=== PATIENT | male | born 1995 | race Hispanic/Latino ===

== ENCOUNTER 2020-10-28 08:03 | Day surgery (SDC) | payer BC ==
--- NOTE | 2020-10-28 10:12 | RAD REPORT ---
EXAM DESCRIPTION: CTAbdomen Pelvis W Contrast - 10/28/2020 10:00 am CLINICAL HISTORY: Abdominal pain. LUNA RECTAL ABSCESS;Abd pain COMPARISON: CT ABD PELVIS W CONTRAST dated 03/15/2015; CT ABD PELVIS W CONTRAST dated 10/06/2014 TECHNIQUE: Biphasic CT imaging of the abdomen and pelvis was performed with 100 ml non-ionic IV cont rast. All CT scans are performed using dose optimization technique as appropriate and may include automated exposure control or mA/KV adjustment according to patient size. FINDINGS: Tiny left lower lobe nodule which is likely benign. The liver, spleen, pancreas, adrenal glands and kidneys are within normal limits. No bowel obstruction, free air, free fluid or abscess. The appendix is normal. No evidence of signi ficant lymphadenopathy. There is a 3.6 by 2.4 centimeter left-sided perianal fluid collection. This i s at approximately the 4 o'clock position. Reactive inguinal lymph nodes. No suspicious bony findings. IMPRESSION: Findings concerning for a perianal abscess.
--- NOTE | 2020-10-28 10:15 | EDPHYS ---
Physician Documentation [facility] Name: Moise Gamble Age: 25 yrs Sex: Male : 1995 Arrival Date: 10/28/2020 Time: 08:06 Bed External Waiting Private MD: None, None ED Physician Naveed Dean HPI: 10/28 09:26 This 25 yrs old Male presents to ER via Ambulatory with complaints of Rectal hortencia Pain. 09:26 The patient presents to the emergency department with an abscess of the gluteal cleft. hortencia Onset: The symptoms/episode began/occurred 3 day(s) ago. Context: the patient has no known special context relating to the rectal area complaint(s). Modifying factors: The symptoms are alleviated by remaining still, sitz baths, The symptoms are aggravated by bowel movement, movement. Associate signs and symptoms: The patient has no apparent associated signs or symptoms. The patient has not experienced similar symptoms in the past. Historical: - Allergies: 08:24 No Known Allergies; iw - Home Meds: 08:24 None [Active]; iw - PMHx: 08:24 None; iw - PSHx: 08:24 None; iw - Immunization history:: Client reports having NOT received the Covid vaccine. - Social history:: Smoking status: Patient denies any tobacco usage or history of. ROS: 09:28 Constitutional: Negative for fever, chills, and weight loss, Eyes: Negative for injury, hortencia pain, redness, and discharge, ENT: Negative for injury, pain, and discharge, Neck: Negative for injury, pain, and swelling, Cardiovascular: Negative for chest pain, palpitations, and edema, Respiratory: Negative for shortness of breath, cough, wheezing, and pleuritic chest pain, Back: Negative for injury and pain, : Negative for injury, bleeding, discharge, and swelling, MS/Extremity: Negative for injury and deformity, Skin: Negative for injury, rash, and discoloration, Neuro: Negative for headache, weakness, numbness, tingling, and seizure, Psych: Negative for depression, anxiety, suicide ideation, homicidal ideation, and hallucinations, Allergy/Immunology: Negative for hives, rash, and allergies, Endocrine: Negative for neck swelling, polydipsia, polyuria, polyphagia, and marked weight changes, Hematologic/Lymphatic: Negative for swollen nodes, abnormal bleeding, and unusual bruising. 09:28 Abdomen/GI: Positive for rectal pain, of the . Exam: 09:28 Constitutional: This is a well developed, well nourished patient who is awake, alert, hortencia and in no acute distress. Head/Face: Normocephalic, atraumatic. Eyes: Pupils equal round and reactive to light, extra-ocular motions intact. Lids and lashes normal. Conjunctiva and sclera are non-icteric and not injected. Cornea within normal limits. Periorbital areas with no swelling, redness, or edema. ENT: Nares patent. No nasal discharge, no septal abnormalities noted. Tympanic membranes are normal and external auditory canals are clear. Oropharynx with no redness, swelling, or masses, exudates, or evidence of obstruction, uvula midline. Mucous membranes moist. Neck: Trachea midline, no thyromegaly or masses palpated, and no cervical lymphadenopathy. Supple, full range of motion without nuchal rigidity, or vertebral point tenderness. No Meningismus. Chest/axilla: Normal chest wall appearance and motion. Nontender with no deformity. No lesions are appreciated. Cardiovascular: Regular rate and rhythm with a normal S1 and S2. No gallops, murmurs, or rubs. Normal PMI, no JVD. No pulse deficits. Respiratory: Lungs have equal breath sounds bilaterally, clear to auscultation and percussion. No rales, rhonchi or wheezes noted. No increased work of breathing, no retractions or nasal flaring. Back: No spinal tenderness. No costovertebral tenderness. Full range of motion. Male : Normal genitalia with no discharge or lesions. Skin: Warm, dry with normal turgor. Normal color with no rashes, no lesions, and no evidence of cellulitis. MS/ Extremity: Pulses equal, no cyanosis. Neurovascular intact. Full, normal range of motion. Neuro: Awake and alert, GCS 15, oriented to person, place, time, and situation. Cranial nerves II-XII grossly intact. Motor strength 5/5 in all extremities. Sensory grossly intact. Cerebellar exam normal. Normal gait. Psych: Awake, alert, with orientation to person, place and time. Behavior, mood, and affect are within normal limits. 09:28 Abdomen/GI: Inspection: abdomen appears normal, Bowel sounds: normal, Palpation: abdomen is soft and non-tender, Rectal exam: swelling, that is moderate, tenderness, that is moderate, Liver: no appreciated palpable abnormalities, Hernia: not appreciated. Vital Signs: 08:22 BP 120 / 66; Pulse 126; Resp 18 S; Temp 97.0; Pulse Ox 100% on R/A; Pain 6/10; iw 10:00 BP 126 / 73; Pulse 70; Resp 16; Pulse Ox 100% ; bp 11:00 BP 121 / 74; Pulse 75; Resp 16; Pulse Ox 100% ; bp MDM: 08:39 Patient medically screened. [facility] 09:29 Differential diagnosis: hemorrhoids, fissure, abscess. Data reviewed: vital signs, [facility] nurses notes, lab test result(s), radiologic studies, CT scan. Data interpreted: Pulse oximetry: on room air is 100 %. Test interpretation: by ED physician or midlevel provider: plain radiologic studies. Counseling: I had a detailed discussion with the patient and/or guardian regarding: the historical points, exam findings, and any diagnostic results supporting the discharge/admit diagnosis, lab results, radiology results. 10/28 09:21 Order name: Basic Metabolic Panel [facility] 10/28 09:21 Order name: CBC with Diff [facility] 10/28 09:21 Order name: Hepatic Function; Complete Time: 10:44 [facility] 10/28 09:21 Order name: Lipase; Complete Time: 10:44 [facility] 10/28 09:21 Order name: Basic Metabolic Panel; Complete Time: 10:44 [facility] 10/28 09:21 Order name: CBC with Automated Diff; Complete Time: 11:07 [facility] 10/28 09:21 Order name: CT Abd/Pelvis - IV Contrast Only; Complete Time: 10:44 [facility] 10/28 12:33 Order name: COVID-19 : Document "Date of Symptom Onset" if Symptomatic. [facility] 10/28 12:53 Order name: CORONAVIRUS [facility] 10/28 14:19 Order name: SARS-COV-2 RT PCR [facility] 10/28 09:21 Order name: IV Saline Lock; Complete Time: 09:48 [facility] 10/28 09:21 Order name: Labs collected and sent; Complete Time: 09:49 [facility] Administered Medications: 09:45 Drug: NS 0.9% 1000 ml Route: IV; Rate: 1 bolus; Site: right antecubital; bp 11:30 Follow up: IV Status: Completed infusion; IV Intake: 1000ml bp 09:45 Drug: Flagyl (metroNIDAZOLE) 500 mg Volume: 100 ml; Route: IVPB; Rate: 200 ml/hr; bp Infused Over: 30 mins; Site: right antecubital; 11:30 Follow up: IV Status: Completed infusion; IV Intake: 100ml bp 09:45 Drug: morphine 4 mg Route: IVP; Site: right antecubital; bp 11:30 Follow up: Response: No adverse reaction bp 09:45 Drug: Zofran (Ondansetron) 4 mg Route: IVP; Site: right antecubital; bp 11:30 Follow up: Response: No adverse reaction bp 10:45 Drug: levofloxacin 750 mg Volume: 150 ml; Route: IVPB; Infused Over: 90 mins; Site: bp right antecubital; Disposition Summary: 10/28/20 10:15 Hospitalization Ordered Hospitalization Status: Observation hortencia Provider: Dick Cain cha Location: Telemetry/MedSurg (observation) hortencia Condition: Stable hortencia Problem: new hortencia Symptoms: have improved hortencia Bed/Room Type: Standard hortencia Room Assignment: hortencia Diagnosis - Anorectal abscess - 3.5X2.4 CM LEFT PERIRECTAL ABSCESS hortencia - Nausea hortencia - Elevated white blood cell count hortencia Forms: - Medication Reconciliation Form hortencia - SBAR form hortencia Signatures: Dispatcher [employer] Naveed Haile MD MD cha Williams, Irene, NICOLASA RN Perry Harris RN RN bp
--- NOTE | 2020-10-28 10:15 | ER ---
Nurse's Notes [facility] Name: Moise Gamble Age: 25 yrs Sex: Male : 1995 Arrival Date: 10/28/2020 Time: 08:06 Bed External Waiting Private MD: None, None Diagnosis: Anorectal abscess-3.5X2.4 CM LEFT PERIRECTAL ABSCESS;Nausea;Elevated white blood cell count Presentation: 10/28 08:22 Chief complaint: Patient states: is having pain and burning in rectal area , thinks he iw has hemorrhoids, feels a bump, had a rash but it has gotten better , noticed it two days ago. Coronavirus screen: At this time, the client does not indicate any symptoms associated with coronavirus-19. Ebola Screen: Patient negative for fever greater than or equal to 101.5 degrees Fahrenheit, and additional compatible Ebola Virus Disease symptoms Patient denies exposure to infectious person. Patient denies travel to an Ebola-affected area in the 21 days before illness onset. No symptoms or risks identified at this time. Initial Sepsis Screen: Does the patient meet any 2 criteria? No. Patient's initial sepsis screen is negative. Does the patient have a suspected source of infection? No. Patient's initial sepsis screen is negative. Risk Assessment: Do you want to hurt yourself or someone else? Patient reports no desire to harm self or others. Onset of symptoms was October 26, 2020. 08:22 Method Of Arrival: Ambulatory iw 08:22 Acuity: IGNACIO 4 iw 09:39 Acuity: IGNACIO 3 iw Triage Assessment: 08:40 General: Appears in no apparent distress. uncomfortable, Behavior is cooperative, bp appropriate for age, anxious. Pain: Complains of pain in buttocks. EENT: No deficits noted. Neuro: No deficits noted. Cardiovascular: No deficits noted. Respiratory: No deficits noted. GI: Reports rectal bleeding. : No signs and/or symptoms were reported regarding the genitourinary system. Derm: No deficits noted. Musculoskeletal: No deficits noted. Historical: - Allergies: 08:24 No Known Allergies; iw - Home Meds: 08:24 None [Active]; iw - PMHx: 08:24 None; iw - PSHx: 08:24 None; iw - Immunization history:: Client reports having NOT received the Covid vaccine. - Social history:: Smoking status: Patient denies any tobacco usage or history of. Screenin:40 Abuse screen: Denies threats or abuse. Denies injuries from another. Nutritional bp screening: No deficits noted. Tuberculosis screening: No symptoms or risk factors identified. Fall Risk None identified. Assessment: 08:40 General: SEE TRIAGE NOTE. bp 10:00 Reassessment: No changes from previously documented assessment. Patient and/or family bp updated on plan of care and expected duration. Pain level reassessed. Patient is alert, oriented x 3, equal unlabored respirations, skin warm/dry/pink. 11:00 Reassessment: No changes from previously documented assessment. Patient and/or family bp updated on plan of care and expected duration. Pain level reassessed. ADMIT FOR SURGICAL I\T\D INITIATED. Vital Signs: 08:22 BP 120 / 66; Pulse 126; Resp 18 S; Temp 97.0; Pulse Ox 100% on R/A; Pain 6/10; iw 10:00 BP 126 / 73; Pulse 70; Resp 16; Pulse Ox 100% ; bp 11:00 BP 121 / 74; Pulse 75; Resp 16; Pulse Ox 100% ; bp ED Course: 08:06 Patient arrived in ED. as 08:06 None, None is Private Physician. as 08:24 Triage completed. iw 08:24 Arm band placed on. iw 08:39 Naveed Dean MD is Attending Physician. hortencia 08:40 Patient has correct armband on for positive identification. Bed in low position. Call bp light in reach. Side rails up X2. 08:43 Perry Roman, NICOLASA is Primary Nurse. bp 09:40 Inserted saline lock: 20 gauge in right antecubital area, using aseptic technique. bp Blood collected. 09:49 CT Abd/Pelvis - IV Contrast Only Sent. bp 09:59 CT Abd/Pelvis - IV Contrast Only In Process Unspecified. EDMS 10:12 Dick Cain MD is Hospitalizing Provider. hortencia Administered Medications: 09:45 Drug: NS 0.9% 1000 ml Route: IV; Rate: 1 bolus; Site: right antecubital; bp 11:30 Follow up: IV Status: Completed infusion; IV Intake: 1000ml bp 09:45 Drug: Flagyl (metroNIDAZOLE) 500 mg Volume: 100 ml; Route: IVPB; Rate: 200 ml/hr; bp Infused Over: 30 mins; Site: right antecubital; 11:30 Follow up: IV Status: Completed infusion; IV Intake: 100ml bp 09:45 Drug: morphine 4 mg Route: IVP; Site: right antecubital; bp 11:30 Follow up: Response: No adverse reaction bp 09:45 Drug: Zofran (Ondansetron) 4 mg Route: IVP; Site: right antecubital; bp 11:30 Follow up: Response: No adverse reaction bp 10:45 Drug: levofloxacin 750 mg Volume: 150 ml; Route: IVPB; Infused Over: 90 mins; Site: bp right antecubital; Intake: 11:30 IV: 1000ml; Total: 1000ml. bp 11:30 IV: 100ml; Total: 1100ml. bp Outcome: 10:15 Decision to Hospitalize by Provider. hortencia 16:57 Patient left the ED. iw Signatures: Dispatcher [employer] EDDE Naveed Dean MD MD cha Martinez, Amelia as Williams, Irene, RN RN Perry Roman RN RN bp
[2020-10-28 10:32] LABS: ALT/SGPT 40 U/L (12-78); AST/SGOT 7 U/L (15-37); Absolute Lymphocytes (CBC) 1.9 K/uL (0.7-4.9); Albumin 3.3 g/dL (3.4-5.0); Alkaline Phosphatase 58 U/L (45-117); BUN Blood Urea Nitrogen 8 mg/dL (7-18); Basophils % 0.4 % (0-1.3); Bicarbonate 29 mmol/L (21-32); Bilirubin Direct 0.3 mg/dL (0-0.2); Glucose Level 94 mg/dL (74-106); Hematocrit 45.5 % (39.6-49.0); Lipase 49 U/L (73-393); MPV 10.5 fL (7.6-11.3); Potassium 3.8 mmol/L (3.5-5.1); Protein, Total 8.1 g/dL (6.4-8.2); RBC Red Blood Cell Count 5.42 M/uL (4.33-5.43); Sodium Level 139 mmol/L (136-145)
[2020-10-28] MEDS ORDERED: MORPHINE 4 MG/ML SYR ONE (10:39)
[2020-10-28] MEDS ORDERED: METRONIDAZOLE 500mg IVPB 500 MG/100 ML BAG IV ONE (10:39)
[2020-10-28] MEDS ORDERED: ONDANSETRON 4 MG/2 ML VIAL ONE (10:39)
[2020-10-28] MEDS ORDERED: NA CHLORIDE 0.9% 1,000 ML ONE (10:39)
[2020-10-28] MEDS ORDERED: Levofloxacin 750mg IV 750 MG/150 ML BAG IV ONE (10:39)
[2020-10-28] MEDS ORDERED: Ringers Lactate 1,000 ML IV ONE (14:48)
[2020-10-28] MEDS ORDERED: propofoL 200 MG/20 ML VIAL IV ONE (15:08)
[2020-10-28] MEDS ORDERED: FENTANYL CITR 100 MCG/2 ML ONE ×2 (15:08→17:00)
[2020-10-28] MEDS ORDERED: MIDAZOLAM HCL 2 MG/2 ML INJ ONE (15:08)
--- NOTE | 2020-10-28 15:11 | P.BOP ---
Preoperative diagnosis: perianal/perirectal abscess, left buttock cellulitis Postoperative diagnosis: same Primary procedure: EUA, anoscopy, Rigid proctoscopy, Incision and drainage perirectal abscess Estimated blood loss: <10cc Specimen: pus Findings: perianal/perirectal abscess Anesthesia: General Complications: None Drain(s): Other Transferred to: Recovery Room Condition: Good
[2020-10-28] MEDS ORDERED: BUPIVACAINE 0.5% PF 10 ML VIAL ONE (15:20)
[2020-10-28] MEDS ORDERED: dexAMETHasone 10 MG/ML VIAL ONE (15:47)
[2020-10-28] MEDS ORDERED: METRONIDAZOLE 500mg IVPB 500 MG/100 ML BAG IV SCH (16:00)
[2020-10-28] MEDS ORDERED: ONDANSETRON 4 MG/2 ML VIAL IV PRN (16:01)
[2020-10-28] MEDS ORDERED: NA CHLORIDE 0.9% 1,000 ML IV SCH (16:01)
[2020-10-28] MEDS ORDERED: MORPHINE 4 MG/ML SYR IV PRN (16:01)
[2020-10-28] MEDS ORDERED: ACETAMINOPHEN 500 MG TAB PO PRN (16:01)
[2020-10-28] MEDS ORDERED: CODEINE 30MG/APAP 300MG TAB ONE (16:45)
[2020-10-28] MEDS ORDERED: Levofloxacin 750mg IV 750 MG/150 ML BAG IV SCH (17:00)
[2020-10-28 17:08] VITALS: BP 116/75; TEMP 97.4; O2SAT 98
--- NOTE | 2020-10-28 20:02 | HP ---
Date of Admission: 10/28/2020 History Of Present Illness: This is the case of a 25-year-old patient, who comes to us with 3 days h istory of perianal and buttock tenderness to the point that today he could not take it anymore, so he decided to come to the ER, found out to have a perianal abscess/perirectal abscess and a surgical co nsult was obtained for a surgical intervention. He denied any dysuria, hematuria, hematochezia, or m hilda. Denies any recent travelling out of the country. Denies any family member sick at home. Den ies any fever. Denies any shortness of breath. Denies any chest pain. Past Medical History: None. Allergies: NONE. Past Surgical History: None. Social History: He does not smoke. He does not drink alcohol. Family History: Noncontributory. Review of Systems: See H and P. Ten points otherwise unremarkable. Physical Examination: General: The patient is awake, alert, no distress. HEENT: Pupils are equal and reactive, anicteric. Neck: Supple. Chest: Clear. Abdomen: Soft and depressible. No guarding or rebound. No peritoneal signs. Extremities: Good capillary refill. Perianal area shows a tenderness over the perianal region exten ding to the left buttock region, consistent with an abscess and cellulitis. Laboratory Data: Blood work shows a WBC count of 12 with hemoglobin of 15 and potassium 3.8. CAT sc an of the abdomen and pelvis shows a fluid collection to the left side of the perianal area consisten t with an abscess. Assessment: This is a 25-year-old patient with perianal/perirectal abscess. The benefits, alternati ves, and risks of examination under anesthesia, anoscopy, rigid proctoscopy, incision and drainage of perianal/perirectal abscess were fully explained to the patient which include, but not limited to in fection, bleeding, damage to adjacent structures, anesthesia complication, incontinence, VA, and even . He also understands this may not relieve the symptoms. He might need more than one surgical intervention. He understand and the mother understands he may require wound care. The patient was immediately booked in OR. Last time he ate was last night. LIZANDRO/JAMES Voice ID: [id number]
--- NOTE | 2020-10-28 20:47 | DS ---
Date of Discharge: 10/28/2020 Diagnoses: Perianal and perirectal abscess, left buttock cellulitis. Procedures: EUA, anoscopy, rigid proctoscopy, incision and drainage of perirectal abscess. Disposition: Home. Activity: As tolerated. No heavy lifting. Plan: Follow up in my office in 1 week. Call for appointment at [phone]. He was advised and the m other to remove the dressings tomorrow and then put a dry gauze over the area. Sitz baths 4 times a day and after every bowel movement. Medications: Cipro 500 p.o. q.12, Tylenol No. 3 q.4 hours p.r.n. pain. LIZANDRO/MODL Voice ID: [id number] Report ID: [id number]
--- NOTE | 2020-10-28 20:47 | OP ---
Date of Procedure: 10/28/2020 Surgeon: Dick Cain MD Preoperative Diagnoses: Perianal and perirectal abscess, left buttock cellulitis. Postoperative Diagnoses: Perianal and perirectal abscess, left buttock cellulitis. Procedures: EUA, anoscopy, rigid proctoscopy, incision and drainage of perirectal abscess. Estimated Blood Loss: Less than 10 mL. Specimen: Pus. Findings: Perianal and perirectal abscess. Anesthesia: General plus local. Complications: None. Packin.25 inch Nu Gauze. Indications: This is a case of a 25-year-old patient with a perianal tenderness, found to have perir ectal and perianal abscess. The benefits, alternatives, and risks of EUA,, anoscopy proctoscopy, inc ision and drainage of perirectal/perianal abscess fully explained to the patient, which include, but not limited to infection, bleeding, damage to adjacent structures, anesthesia complication, recurrenc e, HI, even, . He also understands this may not relieve any symptoms. He might need more than one surgical intervention. He understood and signed a consent. Procedure In Detail: The patient was brought to the operating room, placed in supine position. Anes thesia was done without complication. A time-out was called. Perianal area and buttock area were pr epped and draped in a sterile fashion after placing the patient in lithotomy position. Rectal examin ation was done followed by rigid proctoscopy all the way to about 15 cm limited by the amount of stoo ls present. Then, we put an anoscope, noticed the perianal/perirectal goes into the distal part of t he rectum abscess. We made an incision. An incision was carried out and underneath subcutaneously, we were able to pass a hemostat on the area and the loculations were explored from perianal to perire ctal region. The area was profusely irrigated, hemostasis obtained, and the area was packed with a 0 .25 inch Nu Gauze. The patient tolerated the procedure well. The sponge counts and instrument count s were correct. Sphincter was protected at all times. The patient was sent to recovery in stable co ndition. HM/MODL Voice ID: [id number] Report ID: [id number]
== END 2020-10-28 17:34 | disposition home or self-care (01) ==
LOC: ER 08:03 → UNDOADMOB 10:26 → ERHOLD 10:26 → DS 10:34 → ERHOLD 17:56
PROVIDERS: ATTEND Surgery
PROC: 0DJD8ZZ Inspection of Lower Intestinal Tract, Via Natural or Artificial Opening Endoscopic (ICD-10-PCS; 2020-10-28)
PROC: 0D9P8ZX Drainage of Rectum, Via Natural or Artificial Opening Endoscopic, Diagnostic (ICD-10-PCS; 2020-10-28)
PROC: 0DJD8ZZ Inspection of Lower Intestinal Tract, Via Natural or Artificial Opening Endoscopic (ICD-10-PCS; principal; 2020-10-28 13:30)
DX: K61.2 Anorectal abscess (principal); L03.317 Cellulitis of buttock; U07.1 COVID-19
CPT/HCPCS: 96365; 85025; 80048; 36415; 80076; 83690; 74177; 96375; 99284; 96366; 45300; 46050; U0003; Q9967; J2704; J2250; J3010 ×2; J1100; J7120; J7030; J2405

== ENCOUNTER 2023-03-18 18:11 | Observation (INO) | payer BC, SELFPAY ==
[2023-03-18 20:10] LABS: Potassium 3.9 mEq/L (3.5-5.1)
[2023-03-18 20:16] LABS: Absolute Lymphocytes (CBC) 2.4 K/uL (0.7-4.9); Hematocrit 42.2 % (39.6-49.0); Lymphocytes % 20.7 % (15.3-44.8); MCV 82.5 fL (80-100); MPV 9.6 fL (7.6-11.3); Platelets 214 thou/uL (152-406); RBC Red Blood Cell Count 5.12 M/uL (4.33-5.43)
--- NOTE | 2023-03-18 20:28 | RAD REPORT ---
EXAM DESCRIPTION: CTAbdomen Pelvis W Contrast - 03/18/2023 8:12 pm CLINICAL HISTORY: r/o perirectal abscess COMPARISON: Abdomen Pelvis W Contrast dated 10/28/2020; CT ABD PELVIS W CONTRAST dated 03/15/2015; C T ABD PELVIS W CONTRAST dated 10/06/2014 TECHNIQUE: CT of the abdomen and pelvis was performed. All CT scans are performed using dose optimization technique as appropriate and may include automated exposure control or mA/KV adjustment according to patient size. FINDINGS: Lower chest: No acute abnormality. Liver: No acute abnormality or suspicious lesions. Hepatic steatosis Biliary: No biliary ductal dilatation. Stomach: No significant focal abnormality. Duodenum: No significant focal abnormality. Pancreas: No significant abnormality. Spleen: No significant abnormality. Adrenal: No suspicious lesions. Kidney/ureter: No hydronephrosis. No renal calculi. Retroperitoneum: No retroperitoneal adenopathy. Vascular: No aneurysm. Bowel: No significant focal abnormality. Normal appendix. Peritoneum: No ascites or free air. Bladder: Grossly unremarkable. Reproductive: No adnexal masses. Bones: No acute fracture. Other: 2.83 cm perianal abscess located just to the left of midline in the perineum. There is a tract of fluid extends up to the anus at approximately the 4 o'clock position. This could represent a site of fistulization. MRI could better evaluate. 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
[2023-03-18] MEDS ORDERED: NA CHLORIDE 0.9% 1,000 ML ONE (20:37)
[2023-03-18] MEDS ORDERED: METRONIDAZOLE 500mg IVPB 500 MG/100 ML BAG IV ONE (20:37)
[2023-03-18] MEDS ORDERED: CIPROFLOXACIN 400mg IV 400 MG/200 ML BAG IV ONE (20:37)
--- NOTE | 2023-03-18 20:37 | EDPHYS ---
Physician Documentation [facility] Name: Moise Gamble Age: 27 yrs Sex: Male : 1995 Arrival Date: 03/18/2023 Time: 18:11 Bed 16 Private MD: ED Physician Jhoan Aguila HPI: 03/18 20:35 This 27 yrs old Male presents to ER via Ambulatory with complaints of Boil. kb 20:35 Patient is a 27-year-old male with no medical history who presents for abscess to kb buttocks that started about 3 days ago. States he has an appointment with Dr. Cain tomorrow but the pain got worse so he came in tonight. Denies fever.. Historical: - Allergies: 18:35 No Known Allergies; ll1 - PMHx: 18:35 None; ll1 - PSHx: 18:35 None; ll1 - Immunization history:: Adult Immunizations up to date. - Social history:: Smoking status: Patient reports the use of cigarette tobacco products, smokes one-half pack cigarettes per day. ROS: 20:31 Constitutional: Negative for fever, chills, and weight loss, kb 20:31 Skin: Positive for abscess, of the anus, 20:31 All other systems are negative, Exam: 20:31 Constitutional: This is a well developed, well nourished patient who is awake, alert, kb and in no acute distress. Head/Face: Normocephalic, atraumatic. ENT: Moist Mucous membranes Cardiovascular: Regular rate Respiratory: Respirations even and unlabored. No increased work of breathing. Talking in full sentences MS/ Extremity: Pulses equal, no cyanosis. Neurovascular intact. Full, normal range of motion. Neuro: Awake and alert, GCS 15, oriented to person, place, time, and situation. Moves all extremities. Normal gait. 20:31 Skin: abscess, that is moderate sized, of the anus, with fluctuance, that is moderate, Vital Signs: 18:35 BP 154 / 106; Pulse 81; Resp 18; Temp 98.4; Pulse Ox 100% ; Pain 8/10; ll1 19:50 BP 126 / 59; Pulse 71; Resp 17 S; Pulse Ox 100% on R/A; ha1 18:35 Pain Scale: Adult ll1 Oksana Coma Score: 19:48 Eye Response: spontaneous(4). Motor Response: obeys commands(6). Verbal Response: rv oriented(5). Total: 15. MDM: 18:18 Patient medically screened. kb 20:33 Differential diagnosis: abscess, cellulitis, hemorrhoid. Data reviewed: vital signs, kb nurses notes. Consideration of Admission/Observation Patient was admitted/placed on observation. Escalation of care including admission/observation considered. Management of patient was discussed with the following: Senior Financial Reporting Accountant: Dr Cain accepts pt for admission. Management of patient was discussed with the following: Cupola Tapper Helper notified to put pt on OR schedule for I\T\D of perianal abscess tomorrow morning. Counseling: I had a detailed discussion with the patient and/or guardian regarding the historical points, exam findings, and any diagnostic results supporting the discharge/admit diagnosis, lab results, radiology results, the need for further work-up and treatment in the hospital. 03/18 19:27 Order name: CBC with Diff; Complete Time: 20:36 kb 03/18 19:27 Order name: Basic Metabolic Panel; Complete Time: 20:10 kb 03/19 05:43 Order name: Basic Metabolic Panel EDMS 03/19 05:44 Order name: CBC with Automated Diff EDMS 03/18 19:27 Order name: CT Abd/Pelvis - IV Contrast Only; Complete Time: 20:28 kb 03/18 19:27 Order name: IV Start; Complete Time: 19:50 kb Administered Medications: 20:43 Drug: NS 0.9% IV 1000 ml IV at 125 ml/hr continuous Route: IV; Rate: 125 ml/hr; Site: rv right antecubital; 20:43 Drug: metroNIDAZOLE IVPB 500 mg 100 ml IVPB at 200 ml/hr once over 30 mins Volume: 100 rv ml; Route: IVPB; Rate: 200 ml/hr; Infused Over: 30 mins; Site: right antecubital; 22:15 Drug: Ciprofloxacin IVPB 400 mg 200 ml IVPB once over 60 mins Volume: 200 ml; Route: ha1 IVPB; Infused Over: 60 mins; Site: right antecubital; Disposition Summary: 03/18/23 20:36 Hospitalization Ordered Notes: Hospitalization Status: Observation kb Provider: Dick Cain Condition: Stable kb Problem: new kb Symptoms: are unchanged kb Bed/Room Type: Standard kb Location: [facility] ER HOLD(03/18/23 20:59) rv1 Room Assignment: ERHOLD-(03/18/23 20:59) rv1 Diagnosis - Perianal abscess kb Forms: - Medication Reconciliation Form kb - SBAR form kb - Leadership Thank You Letter kb Addendum: 03/20/2023 09:20 I was immediately available for consultation during this patient's visit. I did not e c2 personally see the patient or guide the patient's care. . Signatures: Dispatcher [employer] EDZita Mae, KNIFE CHANGER-C KNIFE CHANGER-Ckb Jesus Goldstein RN RN rv [place], Rachele RN RN 1 An Toney RN RN ha1 [place] [facility] Jhoan Aguila MD MD ec2 Corrections: (The following items were deleted from the chart) 03/18 20:59 20:36 Telemetry/MedSurg (observation) [facility] 20:59 20:36 kb 1
--- NOTE | 2023-03-18 20:37 | ER ---
Nurse's Notes [facility] Name: Moise Gamble Age: 27 yrs Sex: Male : 1995 Arrival Date: 03/18/2023 Time: 18:11 Bed 16 Private MD: Diagnosis: Perianal abscess Presentation: 03/18 18:35 Chief complaint: Patient states: Abscess to buttocks are for 2-3 days getting worse ll1 each day. Fells hot, but no known fever. No drainage at this time. Coronavirus screen: Client denies travel out of the [place] in the last 14 days. At this time, the client does not indicate any symptoms associated with coronavirus-19. Ebola Screen: Patient denies travel to an Ebola-affected area in the 21 days before illness onset. Initial Sepsis Screen: Does the patient meet any 2 criteria? No. Patient's initial sepsis screen is negative. Does the patient have a suspected source of infection? Yes: Skin breakdown/wound. Risk Assessment: Do you want to hurt yourself or someone else? Patient reports no desire to harm self or others. Onset of symptoms was March 16, 2023. 18:35 Method Of Arrival: Ambulatory ll1 18:35 Acuity: IGNACIO 3 ll1 Triage Assessment: 18:38 General: Appears uncomfortable, Behavior is calm, cooperative, appropriate for age. ll1 Pain: Complains of pain in L buttocks Quality of pain is described as aching, throbbing. Derm: Abscess located on L buttocks. Historical: - Allergies: 18:35 No Known Allergies; ll1 - PMHx: 18:35 None; ll1 - PSHx: 18:35 None; ll1 - Immunization history:: Adult Immunizations up to date. - Social history:: Smoking status: Patient reports the use of cigarette tobacco products, smokes one-half pack cigarettes per day. Screenin:48 [facility] ED Fall Risk Assessment (Adult) History of falling in the last 3 months, rv including since admission No falls in past 3 months (0 pts) Score/Fall Risk Level 0 - 2 = Low Risk Oriented to surroundings, Maintained a safe environment, Educated pt \T\ family on fall prevention, incl call for assistance when getting out of bed, Assessed \T\ reinforced patient's understanding of fall precautions. Abuse screen: Denies threats or abuse. Denies injuries from another. Nutritional screening: No deficits noted. Tuberculosis screening: No symptoms or risk factors identified. Assessment: 19:48 General: Appears in no apparent distress. Behavior is calm, cooperative. Neuro: Level rv of Consciousness is awake, alert, obeys commands, Oriented to person, place, time, situation. Cardiovascular: Capillary refill < 3 seconds Patient's skin is warm and dry. Respiratory: Airway is patent Respiratory effort is even, unlabored. GI: No signs and/or symptoms were reported involving the gastrointestinal system. Vital Signs: 18:35 BP 154 / 106; Pulse 81; Resp 18; Temp 98.4; Pulse Ox 100% ; Pain 8/10; ll1 19:50 BP 126 / 59; Pulse 71; Resp 17 S; Pulse Ox 100% on R/A; ha1 18:35 Pain Scale: Adult ll1 [place] Coma Score: 19:48 Eye Response: spontaneous(4). Motor Response: obeys commands(6). Verbal Response: rv oriented(5). Total: 15. ED Course: 18:15 Patient arrived in ED. mg5 18:18 Zita Carter FNP-C is [facility]. kb 18:18 Jhoan Aguila MD is Attending Physician. kb 18:37 Triage completed. ll1 18:39 Arm band placed on. ll1 19:48 Jesus Goldstein, NICOLASA is Primary Nurse. rv 19:48 Patient has correct armband on for positive identification. Client placed on continuous rv cardiac and pulse oximetry monitoring. NIBP monitoring applied. 19:48 No provider procedures requiring assistance completed. rv 19:50 Basic Metabolic Panel Sent. ha1 19:50 CBC with Diff Sent. ha1 19:51 Inserted saline lock: 20 gauge in right antecubital area, using aseptic technique. ha1 Blood collected. 20:14 CT Abd/Pelvis - IV Contrast Only In Process Unspecified. EDMS 20:36 Dick Cain MD is Hospitalizing Provider. kb Administered Medications: 20:43 Drug: NS 0.9% IV 1000 ml IV at 125 ml/hr continuous Route: IV; Rate: 125 ml/hr; Site: rv right antecubital; 20:43 Drug: metroNIDAZOLE IVPB 500 mg 100 ml IVPB at 200 ml/hr once over 30 mins Volume: 100 rv ml; Route: IVPB; Rate: 200 ml/hr; Infused Over: 30 mins; Site: right antecubital; 22:15 Drug: Ciprofloxacin IVPB 400 mg 200 ml IVPB once over 60 mins Volume: 200 ml; Route: ha1 IVPB; Infused Over: 60 mins; Site: right antecubital; Medication: 19:48 VIS not applicable for this client. rv Outcome: 20:36 Decision to Hospitalize by Provider. kb 03/19 09:00 Patient left the ED. kd3 Signatures: Dispatcher [employer] EDMS Zita Carter, TRAILER DRIVER-C TRAILER DRIVER-Ckb Jesus Goldstein RN RN Rachele Castillo RN RN taras1 Alesia Johnson RN RN kd3 An Toney RN RN haTrinity Wilkerson mg5
[2023-03-19] MEDS: CIPROFLOXACIN 400mg IV 400 MG/200 ML BAG IV SCH ×2 (00:23→08:13)
[2023-03-19] MEDS: NA CHLORIDE 0.9% 1,000 ML IV SCH ×2 (00:23→08:13)
[2023-03-19] MEDS ORDERED: MORPHINE 4 MG/ML SYR IV PRN (00:23)
[2023-03-19 00:29] VITALS: BMI 33.4
[2023-03-19] MEDS: METRONIDAZOLE 500mg IVPB 500 MG/100 ML BAG IV SCH ×2 (00:33→08:13)
[2023-03-19] MEDS ORDERED: ONDANSETRON 4 MG/2 ML VIAL ONE ×2 (03:14→09:52)
[2023-03-19] MEDS ORDERED: MORPHINE 4 MG/ML SYR ONE (03:14)
[2023-03-19] MEDS: ONDANSETRON 4 MG/2 ML VIAL IV PRN ×2 (03:23→12:40)
[2023-03-19 05:37] LABS: Absolute Lymphocytes (CBC) 1.6 K/uL (0.7-4.9); Hematocrit 40.8 % (39.6-49.0); Lymphocytes % 10.4 % (15.3-44.8); MCV 83.4 fL (80-100); MPV 9.3 fL (7.6-11.3); Platelets 226 thou/uL (152-406); RBC Red Blood Cell Count 4.89 M/uL (4.33-5.43)
[2023-03-19 05:43] LABS: Potassium 3.8 mEq/L (3.5-5.1)
[2023-03-19] MEDS ORDERED: METRONIDAZOLE 500mg IVPB 500 MG/100 ML BAG IV ONE (07:57)
[2023-03-19] MEDS ORDERED: CIPROFLOXACIN 400mg IV 400 MG/200 ML BAG IV ONE (07:57)
[2023-03-19] MEDS ORDERED: INFLUENZA VACCINE (for 6+ mo) 0.5 ML DOSE IMVAC ONE (09:00)
[2023-03-19] MEDS: FENTANYL CITR 100 MCG/2 ML ONE ×2 (09:20→09:25)
[2023-03-19] MEDS ORDERED: ROCURONIUM 50 MG/5 ML VIAL IV ONE (09:52)
[2023-03-19] MEDS ORDERED: FENTANYL CITR 100 MCG/2 ML ONE (09:52)
[2023-03-19] MEDS ORDERED: MIDAZOLAM HCL 2 MG/2 ML INJ ONE (09:52)
[2023-03-19] MEDS ORDERED: LIDOCAINE 2% MPF 5 ML VIAL ONE (09:52)
[2023-03-19] MEDS ORDERED: propofoL 200 MG/20 ML VIAL IV ONE (09:52)
[2023-03-19] MEDS ORDERED: BUPIVACAINE 0.5% PF 10 ML VIAL ONE (09:58)
--- NOTE | 2023-03-19 11:04 | P.BOP ---
Preoperative diagnosis: perianal abscess Postoperative diagnosis: same Primary procedure: EUA, anoscopy, rigid proctoscopy, I&D perianal abscess 6x2cm Estimated blood loss: <10cc Specimen: pus Findings: abscess Anesthesia: General Complications: None Drain(s): Other (/" nugauze) Transferred to: Recovery Room Condition: Good
[2023-03-19 11:55] VITALS: O2SAT 95
--- NOTE | 2023-03-19 13:20 | HP ---
Date of Admission: 03/18/2023 Reason For Service: Perianal abscess. History Of Present Illness: This is a case of a 27-year-old patient who came overnight with a perian al tenderness diagnosed with perianal abscess on physical examination and imaging, who is known by us several years ago. He also had a perianal abscess that required incision and drainage. He denies a [place] trauma. He denies any dysuria, hematuria, hematochezia, or melena. He denies any recent travelin g out of the country. Denies any family member sick at home. Review of Systems: Ten points otherwise unremarkable. Allergies: NONE. Medications: None. Medical Problems: None. Social History: He does not smoke. He does not drink alcohol. Family History: Noncontributory. Physical Examination: General: The patient is awake, alert. HEENT: Pupils are equal and reactive. Anicteric. Neck: Supple. Chest: Clear. Heart: S1, S2. Abdomen: Soft and depressible. No guarding or rebound. No peritoneal signs. Extremities: Good capillary refill. Neuro: Cranial nerves 2 through 12 grossly within normal limits. Genitalia: No masses palpated on the area of perianal region. The patient has what looked like a pe rianal abscess with indurations tracking into the peritoneum. Obviously, the area is too tender to b e fully inspected at this moment, that is why, we are going to do examination under anesthesia. Laboratory Data: Blood work shows WBC count of 15.2 with hemoglobin of 13.3, and platelets of 226, p otassium 3.8, BUN is 9. CAT scan of the abdomen and pelvis interpreted by Dr. Salgado, a 2.3 cm perianal abscess. Assessment: This is a case of a 27-year-old patient with a recurrent perianal abscess. The benefits , alternatives, and risks of EUA, anoscopy, proctoscopy, I and D of perianal abscess fully explained, which include, but not limited to, infection, bleeding, damage to adjacent structures, anesthesia co mplication, recurrence, OH, and even . He also understands this may not relieve any symptoms. He might need more than one surgical intervention. Whenever this is done and the abscess is taken ca re of, I still encouraged him to visit his colorectal surgeon to see if there are any ways that we ca n prevent this from keep happening. HM/MODL Voice ID: [id number]
[2023-03-19 14:42] VITALS: BP 132/67; TEMP 97.4
--- NOTE | 2023-03-20 11:26 | OP ---
Surgeon: Dick Cain MD Preoperative Diagnosis: Perianal abscess. Postoperative Diagnosis: Perianal abscess. Procedure: Examination under anesthesia, anoscopy, rigid proctoscopy, incision and drainage of peria nal abscess 6 x 2 cm. Estimated Blood Loss: Less than 10 cc. Specimen: Pus. Finding: Abscess cavity in the perianal region, left anterior lateral. Complications: None. Packing: Quarter of an inch Nu Gauze. Indication: This is a case of a 27-year-old patient who came to us with perianal tenderness, not the first time it happened to him. He was diagnosed with perianal abscess, very tender. So we offered him examination under anesthesia, anoscopy, proctoscopy, incision and drainage of perianal abscess wi th benefits, alternatives, and risks including, but not limited to, infection, bleeding, damage to ad jacent structures, anesthesia complications, PA, and even . He also understands this may not re lieve any symptoms. He might need more than one surgical intervention. He also understands he may r equire wound care. He signed a consent. Description Of Procedure: Patient was brought to the operating room, placed in supine position. Ane sthesia was done without complication. The patient was placed in light Trendelenburg position with p harish protection. A time-out was called. Rectal examination was done followed by rigid proctoscopy all the way to about 12 cm. We could not advance anymore due to large amount of stools present. We then noticed the internal and external hemorrhoids. We do not see any masses up to that area. After that, we put an anoscope that once again allowed to visualize the anal canal and even though we felt the abscess and fluctuance on the perianal region, we cannot see any fistula at this moment connecti on to the rectum. At that moment, we proceeded to make an incision in the perianal region and we now have at least 15 cc of pus coming from that area. Cultures were sent. Area was irrigated. Hemosta sis was obtained. Then, after that, we packed the area with a quarter of an inch Nu Gauze. Patient tolerated the procedure well. Local anesthetic was applied. Patient was sent to Recovery in stable condition. LIZANDRO/JAMES Voice ID: [id number] Report ID: [id number]
--- NOTE | 2023-03-20 12:02 | DS ---
Date of Discharge: 03/19/2023 Diagnosis: Perianal abscess. Procedures: Examination under anesthesia, anoscopy, rigid proctoscopy, incision and drainage of rochelle anal abscess Disposition: Home. He wants to be home, but he is going to change dressing from my office. He is going to come this wee k change the outer dressings. He is going to be going home on antibiotic and pain medicat ion. If he develops any fever or the area get worse, come to us sooner. So he is going to follow ov er the next 24 to 48 hours in my office for dressing changes. LIZANDRO/JAMES Voice ID: [id number] Report ID: [id number]
== END 2023-03-19 13:50 | disposition home or self-care (01) ==
LOC: ER 18:11 → ERHOLD 20:41
PROVIDERS: ADMIT Surgery; ATTEND Surgery
PROC: 0DJD8ZZ Inspection of Lower Intestinal Tract, Via Natural or Artificial Opening Endoscopic (ICD-10-PCS; 2023-03-19)
PROC: 0D9Q0ZZ Drainage of Anus, Open Approach (ICD-10-PCS; principal; 2023-03-19 12:45)
DX: K61.0 Anal abscess (principal); F17.210 Nicotine dependence, cigarettes, uncomplicated
CPT/HCPCS: 36415; 74177; 80048; 85025; 87070; 87075; 87205; G0378; J0744; J2001; J2250; J2405; J2704; J3010; J7030; Q9967

== ENCOUNTER 2024-12-19 16:16 | Emergency (ER) | payer OTHER, SELFPAY ==
[2024-12-19] MEDS ORDERED: ONDANSETRON 4 MG/2 ML VIAL ONE (17:00)
[2024-12-19] MEDS ORDERED: NA CHLORIDE 0.9% 1,000 ML ONE ×2 (17:01→17:49)
[2024-12-19] MEDS ORDERED: MORPHINE 4 MG/ML SYR ONE (17:01)
[2024-12-19 17:05] LABS: Absolute Lymphocytes (CBC) 1.2 K/uL (0.7-4.9); Hematocrit 54.3 % (39.6-49.0); Hemoglobin 17.6 g/dL (13.6-17.9); MCH 27.1 pg (27.0-35.0); MCHC 32.4 g/dL (32.0-36.0); MCV 83.5 fL (80-100); MPV 10.1 fL (7.6-11.3); Nucleated RBC Absolute Count 0.0 (0-0); Nucleated Red Blood Cells % 0.1 % (0-0); RBC Red Blood Cell Count 6.50 M/uL (4.33-5.43); White Blood Count 23.50 thou/uL (4.3-10.9)
[2024-12-19 17:22] LABS: ALT/SGPT 50.0 U/L (16-61); AST/SGOT 26.0 U/L (15-37); Albumin 4.5 g/dL (3.4-5.0); Albumin/Globulin Ratio 1.0 (1.1-1.8); Alkaline Phosphatase 85.0 U/L (45-117); Anion Gap 14.6 mEq/L (5.0-15.0); BUN Blood Urea Nitrogen 15.0 mg/dL (7-18); Globulin 4.7 g/dL (2.3-3.5); Glucose Level 111.0 mg/dL (74-106); Lipase 35.0 U/L (13-75); Potassium 3.6 mEq/L (3.5-5.1)
[2024-12-19 18:38] LABS: Blood Morphology Comment NOT SEEN (NOT SEEN); White Blood Cell Scan DIFF (OK)
--- NOTE | 2024-12-19 18:38 | RAD REPORT ---
EXAMINATION: CT Abdomen Pelvis W Contrast CLINICAL INDICATION: Male, 29 years old. ABD PAIN TECHNIQUE: CT abdomen and pelvis was performed, after the administration of IV contrast, as per [facility] protocol. Axial, sagittal and coronal reconstructions were obtained. One or more of the following dose reduction techniques were used: Automated exposure control, adjustment of the mA and k V according to patient size, and iterative reconstruction. Unless otherwise specified, incidental findings do not require dedicated imaging follow-up. COMPARISON: 03/18/2023 FINDINGS: LOWER CHEST: The visualized lung bases are clear. LIVER: Normal in size and contour. No focal lesion. BILIARY SYSTEM: No suspicious abnormalities. SPLEEN: Normal size. No focal lesion. PANCREAS: No mass, ductal dilation, or rochelle-pancreatic fluid. ADRENALS: Normal; no mass. KIDNEYS: Normal size and contour. No hydronephrosis. URINARY BLADDER: Unremarkable. GASTROINTESTINAL TRACT: No evidence of free air, significant intra-abdominal free fluid, bowel obstru ction or abscess. APPENDIX: Normal appendix. LYMPH NODES: No lymphadenopathy. MUSCULOSKELETAL: No acute or suspicious osseous abnormality. ADDITIONAL FINDINGS: None. IMPRESSION: No acute or concerning abnormalities seen in the abdomen or pelvis.
[2024-12-19 18:40] LABS: Differential Total Cells Count 100; Segmented Neutrophils 83 % (40-80)
--- NOTE | 2024-12-19 19:23 | EDPHYS ---
Physician Documentation [facility] Name: Moise Gamble Age: 29 yrs Sex: Male : 1995 Arrival Date: 12/19/2024 Time: 16:16 Bed 8 Private MD: ED Physician Darin Lopez HPI: 12/19 16:41 This 29 yrs old Male presents to ER via Wheelchair with complaints of dr5 Vomiting/Diarrhea, cramping. 16:41 The patient presents to the emergency department with nausea, vomiting, diarrhea. dr5 Onset: The symptoms/episode began/occurred 2 day(s) ago. Patient is a 29-year-old male with history of diverticulitis coming in with generalized abdominal pain, nausea, vomiting and diarrhea this been going on since 2 days ago. Patient reports that he tried to go to work today but felt bad and started vomiting. Patient denies fever, chest pain, shortness of breath.. Historical: - Allergies: 16:27 No Known Allergies; jb4 - Home Meds: 16:27 None [Active]; jb4 - PMHx: 16:27 None; jb4 - PSHx: 16:27 None; jb4 - Immunization history:: Adult Immunizations not up to date. - Infectious Disease History:: Denies. - Social history:: Smoking status: Patient denies any tobacco usage or history of. ROS: 16:41 Constitutional: as per hpi dr5 Exam: 16:41 Constitutional: This is a well developed, well nourished patient who is awake, alert, dr5 and in no acute distress. Vital Signs: 16:25 BP 132 / 99; Pulse 110; Resp 18; Temp 97.8(O); Pulse Ox 98% on R/A; Weight 106.59 kg jb4 (R); Height 5 ft. 9 in. (R); 17:19 BP 120 / 81; Pulse 113; Resp 20; Pulse Ox 98% on R/A; kj2 18:20 BP 131 / 74; Pulse 86; Resp 18; Pulse Ox 99% ; kj2 19:15 BP 138 / 98; Pulse 80; Resp 16; Temp 97.8; Pulse Ox 100% ; Pain 0/10; bm8 16:25 Body Mass Index 34.70 (106.59 kg, 175.26 cm) jb4 19:15 Pain Scale: Adult bm8 [place] Coma Score: 19:15 Eye Response: spontaneous(4). Motor Response: obeys commands(6). Verbal Response: bm8 oriented(5). Total: 15. MDM: 16:21 Medical Screening Exam initiated dr5 17:42 ED course: Patient's creatinine is 1.8 likely due to prerenal nausea vomiting and dr5 dehydration. Will still get CAT scan with IV contrast and bolus patient with 2 L of fluids initially. Last creatinine was 0.9 from previous encounter 2 years ago.. 19:22 Differential diagnosis: Nonspecific abd pain, diverticulitis, viral gastroenteritis, dr5 gastroenteritis. Data reviewed: vital signs, nurses notes, lab test result(s), amylase and lipase, CBC, white blood cell count, hemoglobin, hematocrit, platelets, electrolytes, sodium, potassium, chloride, serum bicarbonate, BUN, creatinine, serum glucose, Lactate, radiologic studies, CT scan. Consideration of Admission/Observation Escalation of care including admission/observation considered. Escalation was considered patient found to have diverticulitis with perforation. I considered the following discharge prescriptions or medication management in the emergency department I discussed and recommended Over The Counter medications, Medications were administered in the Emergency Department. See MAR. Historians other than the Patient: Parent: Mother. Care significantly affected by the following Social Determinants of Health: Poor access to healthcare and/or lack of insurance, Poor access to transportation, Problems related to employment. Counseling: I had a detailed discussion with the patient and/or guardian regarding the historical points, exam findings, and any diagnostic results supporting the discharge/admit diagnosis, the presence of at least one elevated blood pressure reading (>120/80) during this emergency department visit, lab results, radiology results, the need for outpatient follow up, for definitive care, a family practitioner, to return to the emergency department if symptoms worsen or persist or if there are any questions or concerns that arise at home. Medication response: Normal saline x 2. Response to treatment: the patient's symptoms have resolved after treatment, the patient's condition has returned to base line, the patient is now symptom free. Special discussion: Based on the patient's Hx, exam, and Dx evaluation, there is no indication for emergent surgery or inpatient Tx. It is understood by the patient/guardian that if the Sx's persist or worsen they need to return immediately for re-evaluation. Based on the history and exam findings, there is no indication for further emergent testing or inpatient evaluation. I discussed with the patient/guardian the need to see the primary care provider for further evaluation of the symptoms. ED course: Patient's lactate acid is normal. Normal CT scan. Patient reports he is feel much better. Elevated creatinine was likely due to prerenal dehydration. 2 L of fluids given and recommended patient increase hydration today and tomorrow. All questions answered. Patient has no symptoms on discharge. Vital signs stable. Strict ER precautions given.. 12/19 16:27 Order name: CBC with Diff; Complete Time: 18:42 [facility] 12/19 16:27 Order name: CMP; Complete Time: 17:25 [facility] 12/19 16:27 Order name: Lipase; Complete Time: 17:25 [facility] 12/19 17:16 Order name: CBC Smear Scan; Complete Time: 18:42 [facility] 12/19 17:25 Order name: Blood Culture Adult (2) [facility] 12/19 17:25 Order name: Lactate w/ 2H reflex if indic.; Complete Time: 18:42 [facility] 12/19 18:40 Order name: Manual Differential; Complete Time: 18:42 [facility] 12/19 16:35 Order name: CT Abd/Pelvis - IV Contrast Only; Complete Time: 18:42 [facility] 12/19 16:27 Order name: IV Saline Lock; Complete Time: 16:52 [facility] 12/19 16:27 Order name: Labs collected and sent; Complete Time: 16:52 [facility] Administered Medications: 17:06 Drug: Ondansetron IVP 4 mg IVP once; over 2 minutes Route: IVP; Site: right antecubital;kj2 18:52 Follow up: Response: No adverse reaction kj2 17:06 Drug: morphine IVP or IV 4 mg IVP once over 4 mins Route: IVP; Infused Over: 4 mins; kj2 Site: right antecubital; 18:52 Follow up: Response: No adverse reaction kj2 17:06 Drug: NS 0.9% IV 1000 ml IV at 1 bolus Per protocol; to be given as a bolus over 60 kj2 minutes Route: IV; Rate: 1 bolus; Site: right antecubital; 18:52 Follow up: IV Status: Completed infusion; IV Intake: 1000ml kj2 18:42 Drug: NS 0.9% IV 1000 ml IV at 1000 ml once; to be given as a bolus over 60 minutes kj2 Route: IV; Rate: 1000 ml; Site: right antecubital; 19:18 Follow up: Response: No adverse reaction; IV Status: Completed infusion bm8 Disposition Summary: 12/19/24 19:22 Discharge Ordered Notes: Location: Home dr5 Condition: Stable dr5 Diagnosis - Other specified noninfective gastroenteritis and colitis dr5 Followup: dr5 - With: Emergency Department - When: As needed - Reason: Worsening of condition Followup: dr5 - With: Private Physician - When: 1 - 2 days - Reason: Recheck today's complaints, Continuance of care, Re-evaluation by your physician Discharge Instructions: - Discharge Summary Sheet dr5 - Dehydration, Adult dr5 - Colitis dr5 Forms: - Medication Reconciliation Form dr5 - Antibiotic Education dr5 - Patient Portal Instructions dr5 - Leadership Thank You Letter dr5 Prescriptions: - Augmentin 875-125 mg Oral Tablet - take 1 tablet ORAL route every 12 hours for 10 days; 20 tablet; Refills: 0, dr5 Product Selection Permitted - Zofran 4 mg Oral Tablet - take 1 tablet ORAL route every 12 hours As needed; 20 tablet; Refills: 0, dr5 Product Selection Permitted Signatures: Dispatcher [employer] EDMS Hubert Rea, RN RN jb4 Raven Hedrick RN RN kj2 Crason Mccoy, CIRCLE CUTTING SAW OPERATOR-C CIRCLE CUTTING SAW OPERATOR-Cdr5 Harvey Portillo RN bm8 Corrections: (The following items were deleted from the chart) 16:27 16:27 CBC+H.LAB.BRZ ordered. EDMS EDMS 16:27 16:27 COMPREHENSIVE METABOLIC PANEL+C.LAB.BRZ ordered. EDMS EDMS 16:27 16:27 LIPASE+C.LAB.BRZ ordered. EDMS EDMS 16:35 16:35 UA Rfx Antoine Cult if indicated+U.LAB.BRZ ordered. EDMS EDMS
--- NOTE | 2024-12-19 19:23 | ER ---
Nurse's Notes [facility] Name: Moise Gamble Age: 29 yrs Sex: Male : 1995 Arrival Date: 12/19/2024 Time: 16:16 Bed 8 Private MD: Diagnosis: Other specified noninfective gastroenteritis and colitis Presentation: 12/19 16:25 Chief complaint: Patient states: I woke up with heart burn, I started vomiting around jb4 1330 at work. When I got home I started having diarrhea then I started cramping and having cold sweats. Coronavirus screen: Client presents with at least one sign or symptom that may indicate coronavirus-19. Ebola Screen: No symptoms or risks identified at this time. Initial Sepsis Screen: Does the patient meet any 2 criteria? No. Patient's initial sepsis screen is negative. Does the patient have a suspected source of infection? No. Patient's initial sepsis screen is negative. Risk Assessment: Do you want to hurt yourself or someone else? Patient reports no desire to harm self or others. Onset of symptoms was December 19, 2024. Transition of care: patient was not received from another setting of care. 16:25 Method Of Arrival: Wheelchair jb4 16:25 Acuity: IGNACIO 3 jb4 Historical: - Allergies: 16:27 No Known Allergies; jb4 - Home Meds: 16:27 None [Active]; jb4 - PMHx: 16:27 None; jb4 - PSHx: 16:27 None; jb4 - Immunization history:: Adult Immunizations not up to date. - Infectious Disease History:: Denies. - Social history:: Smoking status: Patient denies any tobacco usage or history of. Screenin:31 [facility] ED Fall Risk Assessment (Adult) History of falling in the last 3 months, kj2 including since admission No falls in past 3 months (0 pts) Confusion or Disorientation No (0 pts) Intoxicated or Sedated No (0 pts) Impaired Gait No (0 pts) Mobility Assist Device Used No (0 pt) Altered Elimination No (0 pt) Score/Fall Risk Level 0 - 2 = Low Risk Maintained a safe environment, Hourly rounding (assess needs \T\ fall precautionary measures) done. Abuse screen: Denies threats or abuse. Denies injuries from another. Nutritional screening: No deficits noted. Tuberculosis screening: No symptoms or risk factors identified. Assessment: 16:29 General: Appears in no apparent distress. Behavior is cooperative. Pain: Complains of kj2 pain in ABDOMEN Pain currently is 7 out of 10 on a pain scale. Neuro: Level of Consciousness is awake, alert, obeys commands, Oriented to person, place, time, situation. Cardiovascular: Patient's skin is warm and dry. Respiratory: Airway is patent Respiratory effort is unlabored. GI: Abdomen is non-distended. : No signs and/or symptoms were reported regarding the genitourinary system. 17:19 Reassessment: Patient appears in no apparent distress at this time. Patient and/or kj2 family updated on plan of care and expected duration. Pain level reassessed. Patient is alert, oriented x 3, equal unlabored respirations, skin warm/dry/pink. 18:20 Reassessment: Patient appears in no apparent distress at this time. Patient and/or kj2 family updated on plan of care and expected duration. Pain level reassessed. Patient is alert, oriented x 3, equal unlabored respirations, skin warm/dry/pink. 19:15 General: Appears in no apparent distress. comfortable, Behavior is calm, cooperative, bm8 appropriate for age. Pain: Denies pain. Neuro: No deficits noted. Level of Consciousness is awake, alert, obeys commands, Oriented to person, place, time, situation, Appropriate for age. Cardiovascular: No deficits noted. Denies chest pain, Capillary refill < 3 seconds fingers Patient's skin is warm and dry. Respiratory: Airway is patent Respiratory effort is even, unlabored, Respiratory pattern is regular, symmetrical. GI: Abdomen is round non-distended. GI: Patient currently denies abdominal pain, nausea, pain, vomiting. : No signs and/or symptoms were reported regarding the genitourinary system. EENT: No signs and/or symptoms were reported regarding the EENT system. Derm: No signs and/or symptoms reported regarding the dermatologic system. Musculoskeletal: No signs and/or symptoms reported regarding the musculoskeletal system. Vital Signs: 16:25 BP 132 / 99; Pulse 110; Resp 18; Temp 97.8(O); Pulse Ox 98% on R/A; Weight 106.59 kg jb4 (R); Height 5 ft. 9 in. (R); 17:19 BP 120 / 81; Pulse 113; Resp 20; Pulse Ox 98% on R/A; kj2 18:20 BP 131 / 74; Pulse 86; Resp 18; Pulse Ox 99% ; kj2 19:15 BP 138 / 98; Pulse 80; Resp 16; Temp 97.8; Pulse Ox 100% ; Pain 0/10; bm8 16:25 Body Mass Index 34.70 (106.59 kg, 175.26 cm) jb4 19:15 Pain Scale: Adult bm8 [place] Coma Score: 19:15 Eye Response: spontaneous(4). Motor Response: obeys commands(6). Verbal Response: bm8 oriented(5). Total: 15. ED Course: 16:18 Patient arrived in ED. al6 16:20 Carson Mccoy FNP-C is PHCP. dr5 16:20 Darin Lopez MD is Attending Physician. dr5 16:20 Zita Carter FNP-C is PHCP. kb 16:27 Triage completed. jb4 16:27 Arm band placed on right wrist. jb4 16:32 Patient has correct armband on for positive identification. Provided Education on: CALL kj2 LIGHT. 16:36 Raven Hedrick RN is Primary Nurse. kj2 16:50 Initial lab(s) drawn, by me, sent to lab. Inserted saline lock: 20 gauge in right aa5 antecubital area, using aseptic technique. Blood collected. Flushed with 10 mL NS. 17:42 CT Abd/Pelvis - IV Contrast Only In Process Unspecified. EDMS 19:00 Report received from NICOLASA saha. bm8 19:15 Client placed on continuous cardiac and pulse oximetry monitoring. NIBP monitoring bm8 applied. headrig sawyer on. Pulse ox on. NIBP on. 19:15 Provided Education on: post er care. bm8 19:15 No provider procedures requiring assistance completed. IV discontinued, intact, bm8 bleeding controlled, No redness/swelling at site. Pressure dressing applied. Administered Medications: 17:06 Drug: Ondansetron IVP 4 mg IVP once; over 2 minutes Route: IVP; Site: right antecubital;kj2 18:52 Follow up: Response: No adverse reaction kj2 17:06 Drug: morphine IVP or IV 4 mg IVP once over 4 mins Route: IVP; Infused Over: 4 mins; kj2 Site: right antecubital; 18:52 Follow up: Response: No adverse reaction kj2 17:06 Drug: NS 0.9% IV 1000 ml IV at 1 bolus Per protocol; to be given as a bolus over 60 kj2 minutes Route: IV; Rate: 1 bolus; Site: right antecubital; 18:52 Follow up: IV Status: Completed infusion; IV Intake: 1000ml kj2 18:42 Drug: NS 0.9% IV 1000 ml IV at 1000 ml once; to be given as a bolus over 60 minutes kj2 Route: IV; Rate: 1000 ml; Site: right antecubital; 19:18 Follow up: Response: No adverse reaction; IV Status: Completed infusion bm8 Medication: 17:20 VIS not applicable for this client. kj2 Intake: 18:52 IV: 1000ml; Total: 1000ml. kj2 Outcome: 19:15 Discharged to home ambulatory, with family, bm8 19:15 Condition: stable 19:15 Discharge instructions given to patient, family, Instructed on discharge instructions, follow up and referral plans. no drinking with medication, no driving heavy equipment, medication usage, Demonstrated understanding of instructions, follow-up care, medications, 19:22 Discharge ordered by MD. dr5 19:27 Patient left the ED. zm Signatures: Dispatcher [employer] EDMS Zita Cartre, CHAPIS YUEN-Yesenia Chávez, RN RN aa5 Hubert Rea RN RN jb4 Betty Cain RN RN zm Harvey Portillo RN RN bm8 Raven Hedrick RN RN kj2 Carson Mccoy FNP-C FRUIT WORKER-Cdr5 Claire Nelson6 Corrections: (The following items were deleted from the chart) 16:28 16:25 Resp 18bpm; Temp 97.8F Oral; 106.59 kg Reported; Height 5 ft. 9 in. Reported; jb4 BMI: 34.7; jb4
[2024-12-19 19:52] VITALS: TEMP 97.8
[2024-12-19 19:55] VITALS: BP 138/98; O2SAT 100
== END 2024-12-19 19:27 | disposition home or self-care (01) ==
LOC: ER 16:16
DX: K52.89 Other specified noninfective gastroenteritis and colitis (principal)
CPT/HCPCS: 96361; 87040 ×2; 85025; 36415; 83605; 83690; 80053; 74177; 96375; 96374; 99285; Q9967; J2405; J7030 ×2